=== PATIENT | female | born 1945 | race Caucasian/White ===

== ENCOUNTER 2018-04-16 21:30 | Emergency (ER) | payer BC ==
[~2018-04-16] VITALS: Ht 167.6 cm; Wt 54.4 kg
--- NOTE | 2018-04-16 21:45 | NUR ---
Pt BIBRA FROM HOME D/T GLF FROM ETOH. LACERATION TO HEAD AND LIP. LOC. HEAD IS SECURED AND WRAPPED UP IN KERLIX BANDAGE. UPON ARRIVAL Pt IS AWAKE & ALERT, AND VERBAL. VSS. PLACED IN BED, WAITING TO BE SEEN BY .
--- NOTE | 2018-04-16 22:20 | NUR ---
BEING SEEN BY
[2018-04-16] MEDS ORDERED: LIDOCAINE 1%-EPI 1:100,000 20 ML VIAL IJ ONE (23:30)
[2018-04-16] MEDS ORDERED: TDAP [DIPH/PERTUSSIS/TET] 0.5 ML VIAL IM ONE (23:30)
--- NOTE | 2018-04-17 00:15 | NUR ---
TDAP SHOT GIVEN ON RT ARM. LOT# [id number] EXP DATE 02/16/20
[2018-04-17] MEDS ORDERED: LIDOCAINE 1%-EPI 1:100,000 20 ML VIAL ONE (00:18)
[2018-04-17] MEDS ORDERED: TDAP [DIPH/PERTUSSIS/TET] 0.5 ML VIAL IM ONE (00:18)
--- NOTE | 2018-04-17 01:04 | NUR ---
APPLIED NEW 4X4 GUAZE ON LACERATION TO HEAD. WRAPPED HEAD WITH KERLIX & SECURED WITH TAPE. INFORMED Pt TO KEEP APPLYING PRESSURE TO THE AREA TO STOP THE BLEEDING.
--- NOTE | 2018-04-17 01:15 | NUR ---
AT [facility] CLOSING LACERATION TO THE HEAD WITH SUTURES.
--- NOTE | 2018-04-17 01:30 | NUR ---
APPLIED 4X4 GUAUZE AND WRAPPED HEAD WITH KERLIX.
[2018-04-17 01:51] VITALS: BP 118/78
--- NOTE | 2018-04-17 01:51 | NUR ---
Patient discharged to home in stable condition. Written and verbal after care instructions given. Patient verbalizes understanding of instruction. PT ambulatory with a steady gait VITAL SIGNS WITHIN NORMAL LIMITS.
== END 2018-04-17 01:53 | disposition home or self-care (01) ==
LOC: ER 21:33
DX: S01.01XA Laceration without foreign body of scalp, initial encounter (principal); F10.10 Alcohol abuse, uncomplicated; W18.39XA Other fall on same level, initial encounter; Y93.89 Activity, other specified; Y92.89 Other specified places as the place of occurrence of the external cause; Y99.8 Other external cause status
CPT/HCPCS: 70450-TC; 90715; A4606; A6402; A6403; J3490; Z7610

== ENCOUNTER 2018-04-19 13:14 | Emergency (ER) | payer BC, MEDICARE ==
[~2018-04-19] VITALS: Ht 167.6 cm; Wt 55.3 kg
[2018-04-19 13:14] VITALS: BP 153/101
== END 2018-04-19 14:47 | disposition home or self-care (01) ==
LOC: ER 13:38
DX: S01.01XD Laceration without foreign body of scalp, subsequent encounter (principal); S80.11XA Contusion of right lower leg, initial encounter; F10.10 Alcohol abuse, uncomplicated; W01.198A Fall on same level from slipping, tripping and stumbling with subsequent striking against other object, initial encounter; Y93.89 Activity, other specified; Y92.009 Unspecified place in unspecified non-institutional (private) residence as the place of occurrence of the external cause; Y99.8 Other external cause status
CPT/HCPCS: 99281; A4606; A6403; Z7502; Z7610

== ENCOUNTER 2018-04-28 11:02 | Emergency (ER) | payer BC, MEDICARE ==
[~2018-04-28] VITALS: Ht 167.6 cm; Wt 55.3 kg
[2018-04-28 11:16] VITALS: BP 133/72
== END 2018-04-28 12:01 | disposition home or self-care (01) ==
LOC: ER 11:09
DX: S01.01XD Laceration without foreign body of scalp, subsequent encounter (principal)
CPT/HCPCS: A4606; Z7502; Z7610

== ENCOUNTER 2023-09-20 09:36 | Inpatient (IN) | payer MEDICARE, BC ==
[~2023-09-20] VITALS: Ht 165.1 cm; Wt 56.7 kg
[2023-09-20] MEDS ORDERED: MORPHINE SULFATE INJ 4 MG/ML DISP.SYRIN ONE ×2 (09:59→13:36)
[2023-09-20] MEDS ORDERED: MORPHINE SULFATE INJ 2 MG/ML DISP.SYRIN IV ONE ×2 (10:00→14:00)
[2023-09-20] MEDS ORDERED: AMLO-212 PO (11:17)
[2023-09-20] MEDS ORDERED: CALC1TAB30 PO (11:17)
[2023-09-20] MEDS ORDERED: PANT40TA49 PO (11:17)
[2023-09-20] MEDS ORDERED: ROSU10TA29 PO (11:17)
[2023-09-20] MEDS ORDERED: LEVO-146 PO (11:17)
[2023-09-20 11:20] LABS: BASOPHILS # (AUTO) 0.1 K/uL (0.0-0.2); BASOPHILS % (AUTO) 0.9 % (0.0-2.0); EOSINOPHILS # (AUTO) 0.1 K/uL (0.0-0.7); EOSINOPHILS % (AUTO) 0.9 % (0.0-6.0); HEMATOCRIT 39 % (33-45); LYMPHOCYTES # (AUTO) 1.7 K/uL (0.8-4.8); LYMPHOCYTES % (AUTO) 15.3 % (20.0-44.0); MEAN CORPUSCULAR HEMOGLOBIN 29 PG (26.0-33.0); MEAN CORPUSCULAR HGB CONC 33 g/dl (31.0-36.0); MEAN CORPUSCULAR VOLUME 88 fL (82-100); MONOCYTES # (AUTO) 0.6 K/uL (0.1-1.30); MONOCYTES % (AUTO) 5.1 % (2.0-12.0); NEUTROPHILS # (AUTO) 8.8 K/uL (1.8-8.9); NEUTROPHILS % (AUTO) 77.8 % (43.0-81.0); PLATELET COUNT (AUTO) 280 K/uL (150-450); RED BLOOD CELL COUNT(AUTO) 4.45 MIL/uL (4.0-5.2); RED CELL DISTRIBUTION WIDTH 13.6 % (11.5-15.0); WHITE BLOOD COUNT (AUTO) 11.3 K/uL (4.3-11.0)
[2023-09-20 11:29] LABS: INR 0.97 (0.91-1.10); PROTHROMBIN TIME 10.3 SECS (9.2-11.1)
[2023-09-20 11:34] LABS: CALCIUM, SERUM 8.9 mg/dL (8.5-10.1); CARBON DIOXIDE 28 mmol/L (21-32); CHLORIDE 107 mmol/L (98-107); CREATININE 0.5 mg/dL (0.6-1.3); GLUCOSE 105 mg/dL (74-106); POTASSIUM 3.3 mmol/L (3.5-5.1); SODIUM SERUM 143 mmol/L (136-145); UREA NITROGEN, BLOOD 15 mg/dL (7-18)
[2023-09-20 11:46] LABS: ALANINE AMINOTRANSFERASE 33 U/L (12-78); ALBUMIN 3.2 g/dL (3.4-5.0); ALKALINE PHOSPHATASE 75 U/L (46-116); ASPARTATE AMINOTRANSFERASE 43 U/L (15-37); BILIRUBIN,TOTAL 1.3 mg/dL (0.2-1.0)
[2023-09-20 16:00] VITALS: BP 117/74; TEMP 97.5; O2SAT 91
[2023-09-20] MEDS ORDERED: MAG HYDROX/AL HYDROX/SIMETH 30 ML UDC PO PRN (16:00)
[2023-09-20] MEDS ORDERED: HYDROCODONE/APAP 5/325MG TABLET PO PRN (16:00)
[2023-09-20] MEDS ORDERED: Z GUARD REMEDY 4 OZ OINT TP PRN (16:00)
[2023-09-20] MEDS ORDERED: ACETAMINOPHEN 325 MG TABLET PO PRN (16:00)
[2023-09-20] MEDS ORDERED: ZOLPIDEM TARTRATE 5 MG TABLET PO PRN (16:00)
[2023-09-20] MEDS ORDERED: MAGNESIUM HYDROXIDE 30 ML UDC PO PRN (16:00)
[2023-09-20] MEDS ORDERED: ONDANSETRON HCL/PF 4 MG/2 ML VIAL IVP PRN (16:00)
[2023-09-20] MEDS: ENOXAPARIN SODIUM 40 MG/0.4 ML DISP.SYRIN SQ SCH (17:13)
[2023-09-20] MEDS: MORPHINE SULFATE INJ 2 MG/ML DISP.SYRIN IV PRN ×2 (17:56→22:36)
[2023-09-20] MEDS ORDERED: PANTOPRAZOLE 40 MG TABLET.DR PO PRN (19:30)
[2023-09-20 20:49] VITALS: BP 116/82; TEMP 97.7; O2SAT 92
[2023-09-21] MEDS: MORPHINE SULFATE INJ 2 MG/ML DISP.SYRIN IV PRN ×2 (02:36→08:12)
[2023-09-21] MEDS: LEVOTHYROXINE SODIUM 50 MCG TABLET PO SCH ×2 (07:30→07:48)
[2023-09-21 07:34] LABS: THYROID STIMULATING HORMONE 1.204 uIU/mL (0.358-3.74)
[2023-09-21 07:39] LABS: BASOPHILS # (AUTO) 0.1 K/uL (0.0-0.2); BASOPHILS % (AUTO) 0.7 % (0.0-2.0); EOSINOPHILS % (AUTO) 0.3 % (0.0-6.0); HEMATOCRIT 37 % (33-45); HEMOGLOBIN 12.2 g/dL (11.5-14.8); LYMPHOCYTES # (AUTO) 1.8 K/uL (0.8-4.8); LYMPHOCYTES % (AUTO) 15.9 % (20.0-44.0); MEAN CORPUSCULAR HEMOGLOBIN 29 PG (26.0-33.0); MEAN CORPUSCULAR HGB CONC 34 g/dl (31.0-36.0); MEAN CORPUSCULAR VOLUME 87 fL (82-100); MONOCYTES # (AUTO) 0.9 K/uL (0.1-1.30); MONOCYTES % (AUTO) 8.2 % (2.0-12.0); NEUTROPHILS # (AUTO) 8.7 K/uL (1.8-8.9); NEUTROPHILS % (AUTO) 74.9 % (43.0-81.0); PLATELET COUNT (AUTO) 277 K/uL (150-450); RED CELL DISTRIBUTION WIDTH 13.2 % (11.5-15.0); WHITE BLOOD COUNT (AUTO) 11.6 K/uL (4.3-11.0)
[2023-09-21 07:45] LABS: CARBON DIOXIDE 24 mmol/L (21-32); CHLORIDE 104 mmol/L (98-107); CREATININE 0.6 mg/dL (0.6-1.3); GLUCOSE 143 mg/dL (74-106); MAGNESIUM 1.3 mg/dL (1.8-2.4); PHOSPHORUS 2.7 mg/dL (2.5-4.9); POTASSIUM 3.2 mmol/L (3.5-5.1); SODIUM SERUM 140 mmol/L (136-145); UREA NITROGEN, BLOOD 12 mg/dL (7-18)
[2023-09-21 08:00] VITALS: BP 120/90; TEMP 98.6; O2SAT 92
[2023-09-21] MEDS: AMLODIPINE BESYLATE 5 MG TABLET PO SCH (08:56)
[2023-09-21] MEDS: CALCIUM CARB 600MG /VIT D 1 EACH TABLET PO SCH (08:56)
[2023-09-21] MEDS ORDERED: PANTOPRAZOLE 40 MG VIAL IV SCH (09:00)
[2023-09-21] MEDS ORDERED: MAGNESIUM OXIDE 400 MG TABLET PO ONE (10:00)
[2023-09-21] MEDS: POTASSIUM CHLORIDE 20 MEQ TAB.PRT.SR PO SCH ×2 (10:41→11:50)
[2023-09-21] MEDS ORDERED: BUPIVACAINE 0.25% 75 MG/30 ML VIAL ONE (14:36)
[2023-09-21] MEDS: ENOXAPARIN SODIUM 40 MG/0.4 ML DISP.SYRIN SQ SCH (16:00)
[2023-09-21 16:01] VITALS: BP 132/86; TEMP 97.9; O2SAT 91
[2023-09-21] MEDS: ATORVASTATIN 40 MG TABLET PO SCH (18:00)
[2023-09-21] MEDS ORDERED: FENTANYL PF 100MCG/2ML AMPUL ONE (18:01)
[2023-09-21] MEDS ORDERED: MIDAZOLAM HCL 2 MG/2ML VIAL ONE (18:02)
[2023-09-21] MEDS ORDERED: FAMOTIDINE/PF INJ 20 MG/2 ML VIAL IV ONE (18:02)
[2023-09-21] MEDS ORDERED: Magnesium 1 GM/2 ML VIAL ONE (18:02)
[2023-09-21] MEDS ORDERED: ANESTHESIA TRAY IN PYXIS 1 EA TRAY MC ONE (18:03)
[2023-09-21 20:00] VITALS: BP 128/84; TEMP 97.3; O2SAT 92
[2023-09-21] MEDS ORDERED: LIDOCAINE HCL/MPF 1% 30 ML VIAL IJ ONE (20:00)
[2023-09-21] MEDS ORDERED: TRIAMCINOLONE ACETONIDE SUSP 40 MG/ML 1 ML ONE (20:00)
[2023-09-21 20:45] VITALS: BP 128/84; TEMP 97.3; O2SAT 96
[2023-09-21] MEDS ORDERED: DOCUSATE SODIUM 100 MG CAPSULE PO PRN (21:00)
[2023-09-21] MEDS ORDERED: SENNOSIDES 8.6 MG TABLET PO PRN ×2 (21:00)
[2023-09-21] MEDS ORDERED: ACETAMINOPHEN 325 MG TABLET PO PRN (21:00)
[2023-09-21] MEDS ORDERED: HYDROCODONE/APAP 5/325MG TABLET PO PRN (21:00)
[2023-09-21] MEDS ORDERED: BISACODYL SUPP (10 MG) 10 MG/SUPP.RECT SUPP.RECT RC PRN (21:00)
[2023-09-21 23:33] LABS: HEMOGLOBIN 11.3 g/dL (11.5-14.8)
[2023-09-22] MEDS: ANCEF 1 GM/50 ML D5W IV SCH ×4 (02:07→10:19)
[2023-09-22 05:58] LABS: CALCIUM, SERUM 8.3 mg/dL (8.5-10.1); CREATININE 0.7 mg/dL (0.6-1.3); MAGNESIUM 1.9 mg/dL (1.8-2.4); PHOSPHORUS 2.2 mg/dL (2.5-4.9); POTASSIUM 3.3 mmol/L (3.5-5.1)
[2023-09-22 06:02] LABS: ALBUMIN 2.8 g/dL (3.4-5.0); BILIRUBIN,DIRECT 0.3 mg/dL (0.0-0.2); BILIRUBIN,TOTAL 1.1 mg/dL (0.2-1.0); TOTAL PROTEIN, SERUM 6.5 g/dL (6.4-8.2)
[2023-09-22 07:00] VITALS: BP 138/78; TEMP 97.3; O2SAT 96
[2023-09-22 07:25] LABS: BASOPHILS % (AUTO) 0.1 % (0.0-2.0); HEMATOCRIT 33 % (33-45); HEMOGLOBIN 10.7 g/dL (11.5-14.8); LYMPHOCYTES # (AUTO) 0.8 K/uL (0.8-4.8); LYMPHOCYTES % (AUTO) 7.2 % (20.0-44.0); MEAN CORPUSCULAR HEMOGLOBIN 29 PG (26.0-33.0); MEAN CORPUSCULAR HGB CONC 33 g/dl (31.0-36.0); MEAN CORPUSCULAR VOLUME 88 fL (82-100); MONOCYTES # (AUTO) 1.1 K/uL (0.1-1.30); MONOCYTES % (AUTO) 9.8 % (2.0-12.0); NEUTROPHILS # (AUTO) 9.2 K/uL (1.8-8.9); NEUTROPHILS % (AUTO) 82.9 % (43.0-81.0); PLATELET COUNT (AUTO) 220 K/uL (150-450); RED BLOOD CELL COUNT(AUTO) 3.71 MIL/uL (4.0-5.2); RED CELL DISTRIBUTION WIDTH 13.3 % (11.5-15.0); WHITE BLOOD COUNT (AUTO) 11.2 K/uL (4.3-11.0)
[2023-09-22] MEDS: CALCIUM CARB 600MG /VIT D 1 EACH TABLET PO SCH (08:28)
[2023-09-22] MEDS: AMLODIPINE BESYLATE 5 MG TABLET PO SCH (08:28)
[2023-09-22] MEDS: LEVOTHYROXINE SODIUM 50 MCG TABLET PO SCH (08:31)
[2023-09-22] MEDS: PANTOPRAZOLE 40 MG/PACK PACK PO SCH (08:34)
[2023-09-22] MEDS ORDERED: POTASSIUM CHLORIDE 20 MEQ POWDER PACKET PO ONE (10:00)
[2023-09-22] MEDS ORDERED: K PHOS NEUTRAL 250 MG TABLET PO ONE (15:30)
[2023-09-22] MEDS: ATORVASTATIN 40 MG TABLET PO SCH (18:00)
[2023-09-22] MEDS: ENOXAPARIN SODIUM 40 MG/0.4 ML DISP.SYRIN SQ SCH (18:01)
[2023-09-22 20:00] VITALS: BP 113/71; TEMP 99.5; O2SAT 93
[2023-09-22] MEDS: MORPHINE SULFATE INJ 2 MG/ML DISP.SYRIN IV PRN (22:22)
[2023-09-23 05:04] LABS: APPEARANCE,URINE CLEAR (CLEAR); BILIRUBIN,URINE NEGATIVE (NEGATIVE); BLOOD, URINE 2+ Ery/uL (NEGATIVE); COLOR,URINE YELLOW (YELLOW); KETONES,URINE NEGATIVE (NEGATIVE); LEUKOCYTE ESTERASE ,URINE TRACE (NEGATIVE); NITRITE, URINE NEGATIVE (NEGATIVE); PROTEIN,URINE 2+ mg/dl (NEGATIVE); UGLUCOSE NEGATIVE (NEGATIVE); UROBILINOGEN,URINE 0.2 EU/dL (0.2)
[2023-09-23 05:41] LABS: ADD URINE CULTURE NO; BACTERIA,URINE Rare /HPF (None Seen); MUCUS,URINE Moderate /LPF (None Seen)
[2023-09-23 05:52] LABS: BASOPHILS % (AUTO) 0.4 % (0.0-2.0); EOSINOPHILS # (AUTO) 0.1 K/uL (0.0-0.7); EOSINOPHILS % (AUTO) 0.9 % (0.0-6.0); HEMATOCRIT 32 % (33-45); HEMOGLOBIN 10.5 g/dL (11.5-14.8); LYMPHOCYTES # (AUTO) 1.6 K/uL (0.8-4.8); LYMPHOCYTES % (AUTO) 15.1 % (20.0-44.0); MEAN CORPUSCULAR HEMOGLOBIN 29 PG (26.0-33.0); MEAN CORPUSCULAR HGB CONC 33 g/dl (31.0-36.0); MEAN CORPUSCULAR VOLUME 89 fL (82-100); MONOCYTES # (AUTO) 0.9 K/uL (0.1-1.30); MONOCYTES % (AUTO) 8.3 % (2.0-12.0); NEUTROPHILS # (AUTO) 8.1 K/uL (1.8-8.9); NEUTROPHILS % (AUTO) 75.3 % (43.0-81.0); PLATELET COUNT (AUTO) 212 K/uL (150-450); RED BLOOD CELL COUNT(AUTO) 3.59 MIL/uL (4.0-5.2); RED CELL DISTRIBUTION WIDTH 13.3 % (11.5-15.0); WHITE BLOOD COUNT (AUTO) 10.7 K/uL (4.3-11.0)
[2023-09-23 06:12] LABS: CALCIUM, SERUM 8.2 mg/dL (8.5-10.1); CARBON DIOXIDE 27 mmol/L (21-32); CHLORIDE 106 mmol/L (98-107); CREATININE 0.6 mg/dL (0.6-1.3); GLUCOSE 118 mg/dL (74-106); MAGNESIUM 1.9 mg/dL (1.8-2.4); PHOSPHORUS 2.3 mg/dL (2.5-4.9); SODIUM SERUM 142 mmol/L (136-145); UREA NITROGEN, BLOOD 10 mg/dL (7-18)
[2023-09-23 07:00] VITALS: BP 119/88; TEMP 98.2; O2SAT 94
[2023-09-23] MEDS: PANTOPRAZOLE 40 MG/PACK PACK PO SCH (09:27)
[2023-09-23] MEDS: LEVOTHYROXINE SODIUM 50 MCG TABLET PO SCH (09:27)
[2023-09-23] MEDS: CALCIUM CARB 600MG /VIT D 1 EACH TABLET PO SCH (09:27)
[2023-09-23 09:28] VITALS: BP 119/88
[2023-09-23] MEDS: AMLODIPINE BESYLATE 5 MG TABLET PO SCH (09:28)
[2023-09-23] MEDS: POTASSIUM CHLORIDE 20 MEQ TAB.PRT.SR PO SCH ×3 (12:30→14:40)
[2023-09-23] MEDS ORDERED: K PHOS NEUTRAL 250 MG TABLET PO ONE (16:00)
[2023-09-23] MEDS: ENOXAPARIN SODIUM 40 MG/0.4 ML DISP.SYRIN SQ SCH (16:09)
[2023-09-23] MEDS ORDERED: ENSURE ENLIVE 237 ML LIQUID (VANILLA) PO SCH (17:00)
[2023-09-26] MEDS ORDERED: CEFEPIME 1 GM VIAL ONE (01:23)
== END 2023-09-23 17:45 | DRG 481 ==
LOC: ER 09:38 → MED 15:42
PROVIDERS: ADMIT Student in an Organized Health Care Education/Training Program; ATTEND Student in an Organized Health Care Education/Training Program
PROC: 0QS706Z Reposition Left Upper Femur with Intramedullary Internal Fixation Device, Open Approach (ICD-10-PCS; principal; 2023-09-21)
DX: S72.142A Displaced intertrochanteric fracture of left femur, initial encounter for closed fracture (principal); E44.0 Moderate protein-calorie malnutrition; W01.0XXA Fall on same level from slipping, tripping and stumbling without subsequent striking against object, initial encounter; E78.5 Hyperlipidemia, unspecified; Y92.009 Unspecified place in unspecified non-institutional (private) residence as the place of occurrence of the external cause; E03.9 Hypothyroidism, unspecified; E87.6 Hypokalemia; E83.42 Hypomagnesemia; I10 Essential (primary) hypertension; Z68.20 Body mass index [BMI] 20.0-20.9, adult; R74.01 Elevation of levels of liver transaminase levels; Z87.891 Personal history of nicotine dependence
CPT/HCPCS: 36415; 71045-TC; 72170-TC; 73502; 80048-TC; 80053-TC; 80076-TC; 81001; 83735-TC; 84100-TC; 84443-TC; 85025-TC; 85027-TC; 85610-TC; 97110-TC; 97116-TC; 97530-TC; A4223; A6209; A6253; C1713; C9113; G0378; J0690; J1100; J1650; J2250; J2270; J2405; J2704; J2765; J3010; J3475; J3490; J7030; J7060

== ENCOUNTER 2023-09-25 15:47 | Inpatient (IN) | payer MEDICARE, BC ==
[~2023-09-25] VITALS: Ht 160 cm; Wt 49.9 kg
[~2023-09-25 15:47] MED LIST: AMLO-212 PO; CALC1TAB30 PO; LEVO-146 PO; PANT40TA49 PO; ROSU10TA29 PO
[2023-09-25 16:44] LABS: BASOPHILS # (AUTO) 0.1 K/uL (0.0-0.2); BASOPHILS % (AUTO) 1.3 % (0.0-2.0); EOSINOPHILS # (AUTO) 0.2 K/uL (0.0-0.7); EOSINOPHILS % (AUTO) 1.9 % (0.0-6.0); HEMATOCRIT 33 % (33-45); HEMOGLOBIN 10.9 g/dL (11.5-14.8); LYMPHOCYTES # (AUTO) 2.7 K/uL (0.8-4.8); LYMPHOCYTES % (AUTO) 24.2 % (20.0-44.0); MEAN CORPUSCULAR HEMOGLOBIN 29 PG (26.0-33.0); MEAN CORPUSCULAR HGB CONC 33 g/dl (31.0-36.0); MEAN CORPUSCULAR VOLUME 89 fL (82-100); MONOCYTES # (AUTO) 1.6 K/uL (0.1-1.30); MONOCYTES % (AUTO) 13.9 % (2.0-12.0); NEUTROPHILS # (AUTO) 6.6 K/uL (1.8-8.9); NEUTROPHILS % (AUTO) 58.7 % (43.0-81.0); PLATELET COUNT (AUTO) 336 K/uL (150-450); RED BLOOD CELL COUNT(AUTO) 3.78 MIL/uL (4.0-5.2); RED CELL DISTRIBUTION WIDTH 13.2 % (11.5-15.0); WHITE BLOOD COUNT (AUTO) 11.3 K/uL (4.3-11.0)
[2023-09-25] MEDS ORDERED: ENOX40DI SQ (16:45)
[2023-09-25] MEDS ORDERED: ACET-868 PO (16:45)
[2023-09-25] MEDS ORDERED: ZOLP5TAB2 PO (16:45)
[2023-09-25] MEDS ORDERED: DOCU-141 PO (16:45)
[2023-09-25] MEDS ORDERED: ATOR10TA PO (16:45)
[2023-09-25] MEDS ORDERED: CALC-903 PO (16:45)
[2023-09-25] MEDS ORDERED: TYL2T PO (16:45)
[2023-09-25] MEDS ORDERED: BISA10SU11 RC (16:45)
[2023-09-25] MEDS ORDERED: MAG30ORA PO (16:45)
[2023-09-25] MEDS ORDERED: HYDR-4209 PO (16:45)
[2023-09-25] MEDS ORDERED: SENN-261 PO (16:45)
[2023-09-25] MEDS ORDERED: POVI3780 TP (16:45)
[2023-09-25] MEDS ORDERED: MAGN400O6 PO (16:45)
[2023-09-25 17:07] LABS: INR 0.97 (0.91-1.10); PARTIAL THROMBOPLASTIN TIME 22.8 SEC (24.3-34.3); PROTHROMBIN TIME 10.3 SECS (9.2-11.1)
[2023-09-25 17:35] LABS: LACTIC ACID 1.2 mmol/L (0.4-2.0)
[2023-09-25 17:46] LABS: ALANINE AMINOTRANSFERASE 37 U/L (12-78); ALBUMIN 3.1 g/dL (3.4-5.0); ALKALINE PHOSPHATASE 61 U/L (46-116); ASPARTATE AMINOTRANSFERASE 54 U/L (15-37); BILIRUBIN,DIRECT 0.4 mg/dL (0.0-0.2); BILIRUBIN,TOTAL 1.4 mg/dL (0.2-1.0); CALCIUM, SERUM 9.3 mg/dL (8.5-10.1); CARBON DIOXIDE 23 mmol/L (21-32); CHLORIDE 105 mmol/L (98-107); CREATININE 0.6 mg/dL (0.6-1.3); GLUCOSE 104 mg/dL (74-106); POTASSIUM 3.4 mmol/L (3.5-5.1); SODIUM SERUM 144 mmol/L (136-145); TOTAL PROTEIN, SERUM 7.2 g/dL (6.4-8.2); UREA NITROGEN, BLOOD 12 mg/dL (7-18)
[2023-09-25 17:47] LABS: SALICYLATE 1.4 mg/dL (2.8-20.0)
[2023-09-25 17:48] LABS: ACETAMINOPHEN <10 ug/ml (10-30); ALCOHOL, BLOOD < 3 mg/dL (0-10)
[2023-09-25 18:43] LABS: APPEARANCE,URINE CLEAR (CLEAR); BILIRUBIN,URINE NEGATIVE (NEGATIVE); BLOOD, URINE NEGATIVE Ery/uL (NEGATIVE); COLOR,URINE YELLOW (YELLOW); KETONES,URINE TRACE mg/dL (NEGATIVE); LEUKOCYTE ESTERASE ,URINE NEGATIVE (NEGATIVE); NITRITE, URINE NEGATIVE (NEGATIVE); PH,URINE 6.5 (5.0-8.0); PROTEIN,URINE TRACE mg/dl (NEGATIVE); UGLUCOSE NEGATIVE (NEGATIVE)
[2023-09-25 18:45] LABS: AMPHETAMINE, URINE NEGATIVE (NEGATIVE); BARBITURATE, URINE NEGATIVE (NEGATIVE); BENZODIAZEPINE, URINE NEGATIVE (NEGATIVE); CANNABINOID, URINE NEGATIVE (NEGATIVE); COCCAINE, URINE NEGATIVE (NEGATIVE); OPIATE, URINE NEGATIVE (NEGATIVE); PHENCYCLIDINE SCREEN,URINE NEGATIVE (NEGATIVE)
[2023-09-25 18:55] LABS: ADD URINE CULTURE NO; BACTERIA,URINE None seen /HPF (None Seen); MUCUS,URINE Few /LPF (None Seen); SQUAMOUS EPITHELIAL CELL,UR 0-2 /HPF (None Seen); WBC,URINE 0-2 /HPF (0-3)
[2023-09-25] MEDS ORDERED: CEFTRIAXONE 1GM BAG (ER ONLY) 50 ML IV ONE ×2 (19:30→19:40)
[2023-09-25] MEDS ORDERED: ACETAMINOPHEN 325 MG TABLET PO PRN (19:30)
[2023-09-25] MEDS ORDERED: MORPHINE SULFATE INJ 2 MG/ML DISP.SYRIN IV PRN (19:30)
[2023-09-25] MEDS ORDERED: hydrALAZINE HCL IV 20 MG VIAL IV PRN (19:30)
[2023-09-25] MEDS ORDERED: ONDANSETRON HCL/PF 4 MG/2 ML VIAL IVP PRN (19:30)
[2023-09-25] MEDS: IV NS 0.9% 1,000 ML IV SCH (19:45)
[2023-09-25 20:30] VITALS: BP 144/94; TEMP 98.2; O2SAT 99
[2023-09-25] MEDS ORDERED: VANCOMYCIN 1 GM in IV D5W 250ml IV ONE (20:30)
[2023-09-25 20:54] LABS: LACTIC ACID 4.2 mmol/L (0.4-2.0)
[2023-09-25] MEDS ORDERED: IV NS 0.9% 1,000 ML BAG IV ONE (21:30)
[2023-09-25] MEDS ORDERED: IV NS 0.9% 1,000 ML IV ONE (22:00)
[2023-09-25] MEDS: ATORVASTATIN 10 MG TABLET PO SCH (22:23)
[2023-09-25] MEDS: HEPARIN SODIUM, PORCINE 5000 UNITS/1 ML VIAL SQ SCH (22:26)
[2023-09-26] MEDS: TRAZODONE 50 MG TABLET PO SCH ×2 (00:36→21:27)
[2023-09-26] MEDS ORDERED: VANCOMYCIN 1 GM /D5W 250 ML PB IV ONE (01:16)
[2023-09-26] MEDS: CEFEPIME 1 GM in IV D5W 50 ML IV ONE ×2 (01:26→03:01)
[2023-09-26 04:00] VITALS: BP 145/84; TEMP 98; O2SAT 98
[2023-09-26 06:57] LABS: BASOPHILS # (AUTO) 0.1 K/uL (0.0-0.2); BASOPHILS % (AUTO) 0.6 % (0.0-2.0); EOSINOPHILS # (AUTO) 0.2 K/uL (0.0-0.7); EOSINOPHILS % (AUTO) 2.3 % (0.0-6.0); HEMATOCRIT 31 % (33-45); HEMOGLOBIN 10.4 g/dL (11.5-14.8); LYMPHOCYTES # (AUTO) 2.2 K/uL (0.8-4.8); LYMPHOCYTES % (AUTO) 21.9 % (20.0-44.0); MEAN CORPUSCULAR HEMOGLOBIN 29 PG (26.0-33.0); MEAN CORPUSCULAR HGB CONC 33 g/dl (31.0-36.0); MEAN CORPUSCULAR VOLUME 89 fL (82-100); MONOCYTES # (AUTO) 1.5 K/uL (0.1-1.30); MONOCYTES % (AUTO) 14.5 % (2.0-12.0); NEUTROPHILS # (AUTO) 6.1 K/uL (1.8-8.9); NEUTROPHILS % (AUTO) 60.7 % (43.0-81.0); PLATELET COUNT (AUTO) 330 K/uL (150-450); RED BLOOD CELL COUNT(AUTO) 3.54 MIL/uL (4.0-5.2); RED CELL DISTRIBUTION WIDTH 13.5 % (11.5-15.0)
[2023-09-26 07:17] LABS: ALANINE AMINOTRANSFERASE 28 U/L (12-78); ALBUMIN 2.7 g/dL (3.4-5.0); ALKALINE PHOSPHATASE 54 U/L (46-116); ASPARTATE AMINOTRANSFERASE 38 U/L (15-37); BILIRUBIN,TOTAL 1.4 mg/dL (0.2-1.0); CALCIUM, SERUM 8.6 mg/dL (8.5-10.1); CARBON DIOXIDE 23 mmol/L (21-32); CHLORIDE 109 mmol/L (98-107); CREATININE 0.5 mg/dL (0.6-1.3); GLUCOSE 99 mg/dL (74-106); MAGNESIUM 1.8 mg/dL (1.8-2.4); POTASSIUM 3.1 mmol/L (3.5-5.1); SODIUM SERUM 144 mmol/L (136-145); TOTAL PROTEIN, SERUM 6.5 g/dL (6.4-8.2); UREA NITROGEN, BLOOD 8 mg/dL (7-18)
[2023-09-26] MEDS: LEVOTHYROXINE SODIUM 50 MCG TABLET PO SCH (08:12)
[2023-09-26] MEDS: PANTOPRAZOLE 40 MG TABLET.DR PO SCH (08:12)
[2023-09-26] MEDS: CALCIUM CARBONATE (1250) 500 MG TABLET PO SCH (08:12)
[2023-09-26] MEDS: AMLODIPINE BESYLATE 5 MG TABLET PO SCH (08:12)
[2023-09-26] MEDS: CEFEPIME 2 GM in IV D5W 100 ML IV SCH ×2 (08:13→20:30)
[2023-09-26] MEDS: HEPARIN SODIUM, PORCINE 5000 UNITS/1 ML VIAL SQ SCH ×2 (08:13→20:32)
[2023-09-26] MEDS: IV NS 0.9% 1,000 ML IV SCH (08:14)
[2023-09-26] MEDS ORDERED: IV NS 0.9% 1,000 ML IV PRN (08:26)
[2023-09-26] MEDS: POTASSIUM CHLORIDE 20 MEQ TAB.PRT.SR PO SCH ×2 (10:19→11:12)
[2023-09-26] MEDS ORDERED: MAGNESIUM OXIDE 400 MG TABLET PO ONE (10:30)
[2023-09-26] MEDS ORDERED: POTASSIUM CHLORIDE 20 MEQ TAB.PRT.SR PO ONE ×2 (10:30→14:00)
[2023-09-26 12:18] VITALS: BP 130/74; TEMP 97.8; O2SAT 98
[2023-09-26] MEDS: VANCOMYCIN 500 MG in IV D5W 100ml IV SCH (13:31)
[2023-09-26] MEDS: ENSURE ENLIVE CHOC 237 ML CAN PO SCH (17:10)
[2023-09-26 20:00] VITALS: BP 126/94; TEMP 97.2; O2SAT 96
[2023-09-26] MEDS: ATORVASTATIN 10 MG TABLET PO SCH (21:27)
[2023-09-27] MEDS: VANCOMYCIN 500 MG in IV D5W 100ml IV SCH ×2 (01:04→13:20)
[2023-09-27 04:00] VITALS: BP 128/92; TEMP 97.8; O2SAT 95
[2023-09-27 06:59] LABS: BASOPHILS # (AUTO) 0.1 K/uL (0.0-0.2); BASOPHILS % (AUTO) 0.9 % (0.0-2.0); EOSINOPHILS # (AUTO) 0.4 K/uL (0.0-0.7); EOSINOPHILS % (AUTO) 4.4 % (0.0-6.0); HEMATOCRIT 28 % (33-45); HEMOGLOBIN 9.4 g/dL (11.5-14.8); LYMPHOCYTES # (AUTO) 1.8 K/uL (0.8-4.8); MEAN CORPUSCULAR HEMOGLOBIN 30 PG (26.0-33.0); MEAN CORPUSCULAR HGB CONC 33 g/dl (31.0-36.0); MEAN CORPUSCULAR VOLUME 89 fL (82-100); MONOCYTES # (AUTO) 1.3 K/uL (0.1-1.30); MONOCYTES % (AUTO) 12.9 % (2.0-12.0); NEUTROPHILS # (AUTO) 6.2 K/uL (1.8-8.9); NEUTROPHILS % (AUTO) 63.8 % (43.0-81.0); PLATELET COUNT (AUTO) 338 K/uL (150-450); RED BLOOD CELL COUNT(AUTO) 3.18 MIL/uL (4.0-5.2); RED CELL DISTRIBUTION WIDTH 13.3 % (11.5-15.0); WHITE BLOOD COUNT (AUTO) 9.8 K/uL (4.3-11.0)
[2023-09-27 07:14] LABS: CALCIUM, SERUM 8.5 mg/dL (8.5-10.1); CARBON DIOXIDE 24 mmol/L (21-32); CHLORIDE 110 mmol/L (98-107); CREATININE 0.7 mg/dL (0.6-1.3); GLUCOSE 115 mg/dL (74-106); POTASSIUM 3.7 mmol/L (3.5-5.1); SODIUM SERUM 143 mmol/L (136-145); UREA NITROGEN, BLOOD 12 mg/dL (7-18)
[2023-09-27] MEDS: LEVOTHYROXINE SODIUM 50 MCG TABLET PO SCH (07:45)
[2023-09-27] MEDS: PANTOPRAZOLE 40 MG TABLET.DR PO SCH (07:45)
[2023-09-27] MEDS: ENSURE ENLIVE CHOC 237 ML CAN PO SCH ×2 (08:08→17:05)
[2023-09-27] MEDS: AMLODIPINE BESYLATE 5 MG TABLET PO SCH (08:14)
[2023-09-27] MEDS: CALCIUM CARBONATE (1250) 500 MG TABLET PO SCH (08:15)
[2023-09-27] MEDS: HEPARIN SODIUM, PORCINE 5000 UNITS/1 ML VIAL SQ SCH (08:17)
[2023-09-27] MEDS: CEFEPIME 2 GM in IV D5W 100 ML IV SCH (08:51)
[2023-09-27 12:00] VITALS: BP 105/60; TEMP 98.2; O2SAT 95
[2023-09-27] MEDS ORDERED: VANCOMYCIN 500 MG in IV D5W 100ml IV SCH (21:00)
== END 2023-09-27 20:00 | disposition home health service (06) | DRG 871 ==
LOC: ER 15:49 → MEDSG1 19:56
PROVIDERS: ADMIT Internal Medicine; ATTEND Nurse Practitioner Acute Care
DX: A41.9 Sepsis, unspecified organism (principal); G92.8 Other toxic encephalopathy; E44.0 Moderate protein-calorie malnutrition; E87.20 Acidosis, unspecified; R64 Cachexia; Z68.1 Body mass index [BMI] 19.9 or less, adult; G93.40 Encephalopathy, unspecified; E03.9 Hypothyroidism, unspecified; E87.6 Hypokalemia; E78.5 Hyperlipidemia, unspecified; K21.9 Gastro-esophageal reflux disease without esophagitis; D64.9 Anemia, unspecified; E83.42 Hypomagnesemia; I10 Essential (primary) hypertension; R65.20 Severe sepsis without septic shock; Z87.81 Personal history of (healed) traumatic fracture; Z79.01 Long term (current) use of anticoagulants; G47.00 Insomnia, unspecified; Z79.890 Hormone replacement therapy; Z79.899 Other long term (current) drug therapy; F17.200 Nicotine dependence, unspecified, uncomplicated; E88.09 Other disorders of plasma-protein metabolism, not elsewhere classified; R74.8 Abnormal levels of other serum enzymes; F03.90 Unspecified dementia, unspecified severity, without behavioral disturbance, psychotic disturbance, mood disturbance, and anxiety; F29 Unspecified psychosis not due to a substance or known physiological condition
CPT/HCPCS: 36415; 70450-TC; 71045-TC; 76700-TC; 80048-TC; 80053-TC; 80076-TC; 80202-TC; 81001; 82550-TC; 82553; 83605-TC; 83735-TC; 84100-TC; 84484-TC; 85025-TC; 85730-TC; 87040-TC; 87086-TC; A4223; G0378; G0480; J0692; J0696; J1644; J3370; J7030; J7060

== ENCOUNTER 2025-03-21 16:35 | Emergency (ER) | payer MEDICARE, BC ==
[~2025-03-21] VITALS: Ht 167.6 cm; Wt 41.7 kg
[~2025-03-21 16:35] MED LIST changes: +ACET-868 PO; +ATOR10TA PO; +BISA10SU11 RC; +CALC-903 PO; -CALC1TAB30 PO; +DOCU-141 PO; +ENOX40DI SQ; +HYDR-4209 PO; +MAG30ORA PO; +MAGN400O6 PO; +POVI3780 TP; -ROSU10TA29 PO; +SENN-261 PO; +TYL2T PO; +ZOLP5TAB2 PO
[2025-03-21 17:18] LABS: BASOPHILS # (AUTO) 0.1 K/uL (0.0-0.2); BASOPHILS % (AUTO) 0.9 % (0.0-2.0); EOSINOPHILS # (AUTO) 0.1 K/uL (0.0-0.7); EOSINOPHILS % (AUTO) 0.8 % (0.0-6.0); HEMATOCRIT 44 % (33-45); HEMOGLOBIN 14.6 g/dL (11.5-14.8); LYMPHOCYTES # (AUTO) 2.4 K/uL (0.8-4.8); LYMPHOCYTES % (AUTO) 29.9 % (20.0-44.0); MEAN CORPUSCULAR HEMOGLOBIN 32 PG (26.0-33.0); MEAN CORPUSCULAR HGB CONC 33 g/dl (31.0-36.0); MEAN CORPUSCULAR VOLUME 96 fL (82-100); MONOCYTES # (AUTO) 0.8 K/uL (0.1-1.30); MONOCYTES % (AUTO) 9.4 % (2.0-12.0); NEUTROPHILS # (AUTO) 4.7 K/uL (1.8-8.9); PLATELET COUNT (AUTO) 382 K/uL (150-450); RED BLOOD CELL COUNT(AUTO) 4.62 MIL/uL (4.0-5.2)
[2025-03-21 17:30] LABS: CALCIUM, SERUM 9.7 mg/dL (8.5-10.1); CREATININE 0.6 mg/dL (0.6-1.3); POTASSIUM 3.7 mmol/L (3.5-5.1)
[2025-03-21 17:36] LABS: ALBUMIN 3.4 g/dL (3.4-5.0); BILIRUBIN,DIRECT 0.1 mg/dL (0.0-0.2); BILIRUBIN,TOTAL 0.4 mg/dL (0.2-1.0); TOTAL PROTEIN, SERUM 7.6 g/dL (6.4-8.2)
[2025-03-21 17:44] LABS: LACTIC ACID 1.9 mmol/L (0.4-2.0)
[2025-03-21 17:47] LABS: APPEARANCE,URINE CLEAR (CLEAR); BILIRUBIN,URINE NEGATIVE (NEGATIVE); BLOOD, URINE NEGATIVE Ery/uL (NEGATIVE); COLOR,URINE YELLOW (YELLOW); KETONES,URINE NEGATIVE (NEGATIVE); LEUKOCYTE ESTERASE ,URINE NEGATIVE (NEGATIVE); NITRITE, URINE NEGATIVE (NEGATIVE); PH,URINE 7.5 (5.0-8.0); PROTEIN,URINE NEGATIVE (NEGATIVE); UGLUCOSE NEGATIVE (NEGATIVE); UROBILINOGEN,URINE 0.2 EU/dL (0.2)
[2025-03-21 17:54] LABS: INR 0.94 (0.91-1.10); PARTIAL THROMBOPLASTIN TIME 25.9 SEC (24.3-34.3)
[2025-03-21 19:34] VITALS: BP 128/77; TEMP 98.5; O2SAT 98
== END 2025-03-21 19:35 | disposition home or self-care (01) ==
LOC: ER 16:39
DX: R40.4 Transient alteration of awareness (principal); I10 Essential (primary) hypertension; E03.9 Hypothyroidism, unspecified; Z87.440 Personal history of urinary (tract) infections; Z79.899 Other long term (current) drug therapy; Z86.2 Personal history of diseases of the blood and blood-forming organs and certain disorders involving the immune mechanism
CPT/HCPCS: 36415; 71045-TC; 80048-TC; 80076-TC; 83605-TC; 85025-TC; 85730-TC; 87040-TC; 87086-TC